=== PATIENT | male | born 1995 | race African-American/Black ===

== ENCOUNTER 2021-03-06 17:58 | Emergency (ER) | payer SELFPAY ==
[~2021-03-06] VITALS: Ht 180.3 cm; Wt 72.6 kg
[2021-03-06 19:18] VITALS: BP 123/77
--- NOTE | 2021-03-06 19:21 | NUR ---
to lobby a/w bed ambulatory
[2021-03-06] MEDS: IBUPROFEN 600 MG TAB PO ONE (19:57)
[2021-03-06] MEDS: HYDROcodone/APAP 5/325 MG 1 TAB TAB PO ONE (19:58)
[2021-03-06] MEDS: LIDOCAINE 2% 1000 MG/50 ML VIAL INJ ONE (20:38)
[2021-03-06] MEDS ORDERED: IBUP-2213 PO (21:43)
[2021-03-06] MEDS ORDERED: ACET-8386 PO (21:43)
--- NOTE | 2021-03-06 22:12 | NUR ---
d/c with VSS. d/c education given. opportunity to ask questions given and answered. rx of norco and motrin given.
[2021-03-06 22:13] VITALS: BP 141/71
== END 2021-03-06 22:12 | disposition home or self-care (01) ==
LOC: MED 17:58
DX: S62.324A Displaced fracture of shaft of fourth metacarpal bone, right hand, initial encounter for closed fracture (principal); S62.336A Displaced fracture of neck of fifth metacarpal bone, right hand, initial encounter for closed fracture; Z79.899 Other long term (current) drug therapy; W22.01XA Walked into wall, initial encounter; Y93.89 Activity, other specified; Y92.89 Other specified places as the place of occurrence of the external cause; Y99.8 Other external cause status
CPT/HCPCS: 26605; 73130; 99284; J2001